=== PATIENT | male | born 1990 | race Caucasian/White ===

== ENCOUNTER 2016-08-30 15:33 | Emergency (ER) | payer SELFPAY ==
[2016-08-30] MEDS ORDERED: Sodium Chloride 0.9% 0 ML ONE (16:01)
[2016-08-30] MEDS ORDERED: cloNIDine HCl 0.1 MG TAB ONE (16:01)
[2016-08-30] MEDS ORDERED: Ondansetron HCl/PF 4 MG/2 ML Vial ONE (16:01)
[2016-08-30 16:10] LABS: Lactic Acid - Sepsis 1.2 mmol/L (0.5-2.2)
[2016-08-30] MEDS ORDERED: Sodium Chloride 0.9% 1,000 ML ONE (16:13)
[2016-08-30 16:15] LABS: Anion Gap 13 mmol/L (10-20); BUN (Urea Nitrogen) 16 mg/dL (8.9-20.6); Calc. Creatinine Clearance 0 mL/min (70-130); Calcium 9.7 mg/dL (7.8-10.44); Carbon Dioxide 29 mmol/L (22-29); Chloride 99 mmol/L (98-107); Estimated GFR-MDRD Greater than 90
[2016-08-30 16:16] LABS: #Basophils 0.1 thou/uL (0.0-0.2); #Eosinphils 0.1 thou/uL (0.0-0.7); #Lymphocytes 2.5 thou/uL (1.20-3.40); #Neutrophils 8.5 thou/uL (1.40-6.50); %Basophils 0.7 % (0.0-1.0); %Eosinophils 0.9 % (0.0-10.0); %Lymphocytes 20.5 % (21.0-51.0); %Monocytes 8.5 % (0.0-10.0); Hematocrit 46.4 % (42.0-52.0); Mean Platelet Volume 6.7 fL (7.4-10.4); Red Blood Cell (RBC) Count 5.18 mill/uL (4.70-6.10); White Blood Cell (WBC) Count 12.2 thou/uL (4.8-10.8)
== END 2016-08-30 17:00 | disposition home or self-care (01) ==
LOC: NAV ERS 15:33
DX: F11.23 Opioid dependence with withdrawal (principal); R11.2 Nausea with vomiting, unspecified; E86.0 Dehydration; F41.9 Anxiety disorder, unspecified; F17.210 Nicotine dependence, cigarettes, uncomplicated
CPT/HCPCS: 36415; 80048; 83605; 85025; 96365; J2405; J7050